=== PATIENT | male | born 1945 | race Caucasian/White ===

== ENCOUNTER → 2020-09-30 | Outpatient (CLI) | payer MEDICARE ==
--- NOTE | 2020-09-30 16:09 | ECHOS ---
STRESS ECHOCARDIOGRAM DATE OF SERVICE: 09/30/20 INDICATIONS: Pre-Op Eval BASELINE HEART RATE: 83 BASELINE BLOOD PRESSURE: 123/75 MAXIMUM HEART RATE: 139 MAXIMUM BLOOD PRESSURE: 170/86 85% MPHR: 124 100% MPHR: 155 METS: 7.0 MAXIMUM STAGE REACHED: II TOTAL EXERCISE TIME: 5:09 min RESULTS: Baseline rhythm is sinus mechanism, rate of 83, normal axis and intervals, rare PVCs. Baseline blood pressure 123/75 mmHg. Patient exercised on Mike protocol for 5 minutes 9 seconds reaching a peak rate of 139 beats per minute which is equal to 90% maximum predicted heart rate. Peak blood pressure 170/86 mmHg. The test was terminated secondary to fatigue. There was no chest pain. Electrocardiograph monitoring revealed no evidence of diagnostic ischemic ST deviation. FINDINGS: Baseline echocardiogram revealed normal wall motion. At peak exercise, there was normal wall motion augmentation with no hypokinesis or dyskinesis. CONCLUSION: 1. Average exercise tolerance with normal echocardiograph response to exercise and rare PVCs. 2. Normal stress echocardiogram with no evidence of stress-induced ischemia. MMODL / IJN: [id number] /
== END | disposition home or self-care (01) ==
LOC: RADNMMAIN 10:28
PROVIDERS: ATTEND Internal Medicine
DX: Z01.818 Encounter for other preprocedural examination (principal); I49.3 Ventricular premature depolarization
CPT/HCPCS: 93351

== ENCOUNTER → 2021-04-16 | Outpatient (CLI) | payer MEDICARE ==
[2021-04-16 14:55] LABS: Basophils % (A) 1 %; Eosinophils # (A) 0.1 k/uL (0-0.7); Eosinophils % (A) 1 %; HCT 43.7 % (39.0-53.0); HGB 14.2 gm/dL (13.0-17.5); Lymphocytes # (A) 1.6 k/uL (1.0-4.8); Lymphocytes % (A) 30 %; MCH 32.1 pg (25.0-35.0); MCHC 32.5 g/dL (31.0-37.0); MCV 98.8 fL (80.0-100.0); Mean Platelet Volume 7.3; Monocytes # (A) 0.3 k/uL (0-1.0); Monocytes % (A) 5 %; Neutrophils # (A) 3.2 k/uL (1.3-7.7); Neutrophils % (A) 62 %; Platelet Count 218 k/uL (150-450); RBC 4.42 m/uL (4.30-5.90); RDW 12.9 % (11.5-15.5); WBC 5.2 k/uL (3.8-10.6)
[2021-04-16 15:23] LABS: RBC Morphology Normal
[2021-04-16 23:08] LABS: Protein, Total 6.5 g/dL (6.2-8.2)
[2021-04-17 14:55] LABS: Gamma Globulin 0.85 g/dL (0.70-1.50)
== END | disposition home or self-care (01) ==
LOC: LABWHC1 13:43
PROVIDERS: ATTEND Internal Medicine
DX: D72.819 Decreased white blood cell count, unspecified (principal)
CPT/HCPCS: 36415; 84165; 85025

== ENCOUNTER → 2021-12-14 | Outpatient (CLI) | payer MEDICARE ==
--- NOTE | 2021-12-14 13:05 | US ---
EXAMINATION TYPE: US venous doppler duplex LE RT DATE OF EXAM: 12/14/2021 12:47 PM COMPARISON: NONE CLINICAL HISTORY: R22.41 SWELLING RIGHT LOWER LEG. Intermittent swelling within the right leg. Hx of DVT. SIDE PERFORMED: Right TECHNIQUE: The lower extremity deep venous system is examined utilizing real time linear array sonog mindi with graded compression, doppler sonography and color-flow sonography. VESSELS IMAGED: Common Femoral Vein Deep Femoral Vein Greater Saphenous Vein * Femoral Vein Popliteal Vein Small Saphenous Vein * Proximal Calf Veins (* superficial vessels) Right Leg: No evidence of DVT in veins imaged. Duplicate femoral vein noted. IMPRESSION: No ultrasound evidence for deep venous thrombosis of the right lower extremity.
[2021-12-14 13:35] LABS: Appearance,Urine Clear (Clear); Bilirubin,Urine Negative (Negative); Blood,Urine Negative (Negative); Color,Urine Yellow; Glucose,Urine (UA) Negative (Negative); Ketones,Urine Negative (Negative); Leukocyte Esterase,Urine Negative (Negative); Nitrite,Urine Negative (Negative); Protein,Urine Negative (Negative); Specific Gravity,Urine 1.018 (1.001-1.035); Urobilinogen,Urine <2.0 mg/dL (<2.0)
[2021-12-14 13:41] LABS: INR 0.9 (<1.2); Partial Thromboplastin Time 24.4 sec (22.0-30.0); Prothrombin Time 10.2 sec (9.0-12.0)
[2021-12-14 19:06] LABS: Basophils # (A) 0.02 X 10*3/uL (0.00-0.10); Basophils % (A) 0.4 %; Eosinophils # (A) 0.07 X 10*3/uL (0.04-0.35); Eosinophils % (A) 1.3 %; HCT 40.2 % (39.6-50.0); HGB 13.1 g/dL (13.0-17.0); Immature Grans, Automated 0.4 %; Lymphocytes # (A) 1.62 X 10*3/uL (0.90-5.00); Lymphocytes % (A) 29.4 %; MCHC 32.6 g/dL (32.0-37.0); Mean Platelet Volume 9.5 fL (9.5-12.2); Monocytes # (A) 0.48 X 10*3/uL (0.20-1.00); Monocytes % (A) 8.7 %; NRBC Per 100 WBC 0 /100 WBCS (0.0-0.0); Neutrophils % (A) 59.8 %; Platelet Count 275 X 10*3/uL (140-440); RBC 4.37 X 10*6/uL (4.40-5.60); RDW 13.5 % (11.5-14.5); WBC 5.51 X 10*3/uL (4.50-10.00)
[2021-12-14 19:09] LABS: African American GFR (CKD) 89.1 (60.0-200.0); Albumin 4.1 g/dL (3.8-4.9); Albumin/Globulin Ratio 1.28 (1.60-3.17); Anion Gap 8.5 mmol/L (10.00-18.00); BUN/Creat Ratio 20.29 Ratio (12.00-20.00); Blood Urea Nitrogen 19.5 mg/dL (9.0-27.0); Calcium 9.5 mg/dL (8.7-10.3); Carbon Dioxide 25.6 mmol/L (20.0-27.5); Globulin 3.2 g/dL (1.6-3.3); Non-African American GFR(CKD) 76.9 (60.0-200.0); Potassium 4.1 mmol/L (3.5-5.5); Total Bilirubin 0.4 mg/dL (0.30-1.20); Total Protein 7.2 g/dL (6.2-8.2)
== END | disposition home or self-care (01) ==
LOC: RADUSWWP 12:16
PROVIDERS: ATTEND Internal Medicine
DX: Z01.818 Encounter for other preprocedural examination (principal); R22.41 Localized swelling, mass and lump, right lower limb
CPT/HCPCS: 80053; 81003; 85025; 85610; 85730

== ENCOUNTER → 2023-05-09 | Outpatient (CLI) | payer MEDICARE ==
--- NOTE | 2023-05-09 19:24 | US ---
EXAMINATION TYPE: US screening aorta DATE OF EXAM: 05/09/2023 COMPARISON: NONE CLINICAL INDICATION: Male, 77 years old with history of Z13.6 SCR FOR AAA; screening TECHNIQUE: Multiple sonographic images of the abdominal aorta are obtained. FINDINGS: EXAM MEASUREMENTS: Abdominal Aorta: Proximal: 2.6 x 2.7cm Mid: 2.3 x 2.4cm Distal: 2.3 x 2.7cm Bifurcation: Right Iliac: 1.4 x 1.6cm Left Iliac: 1.5 x 1.3cm FI[employer]BRICK LAYER NOTES: Aorta appears ectatic. Iliacs upper limits of normal. IMPRESSION: Ectatic proximal and distal abdominal aorta measuring up to 2.7 cm each. The bilateral common iliac arteries are also borderline ectatic measuring up to 1.6 cm on the right and 1.5 cm on the left. No evidence for AAA. MTDD
== END | disposition home or self-care (01) ==
LOC: RADUSWWP 07:51
PROVIDERS: ATTEND Internal Medicine
DX: Z13.6 Encounter for screening for cardiovascular disorders (principal); I77.811 Abdominal aortic ectasia
CPT/HCPCS: 93979

== ENCOUNTER → 2024-05-21 | Outpatient (CLI) | payer MEDICARE ==
--- NOTE | 2024-05-21 11:12 | US ---
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 FINDINGS: EXAM MEASUREMENTS: Abdominal Aorta: Proximal: 3.2 x 2.9cm Mid: 2.4 x 2.5cm Distal: 2.5 x 2.7cm Bifurcation: Right Iliac: 1.4 x 1.4cm Left Iliac: 1.6 x 1.6cm SPIRAL [employer]NER NOTES: Aorta appears ectatic as noted last year IMPRESSION: No evidence for aortic aneurysm. No further workup recommended for negative screening aortic aneurysm ultrasound. [facility], , 05/21/2024 11:10 AM
== END | disposition home or self-care (01) ==
LOC: RADUSWWP 08:53
PROVIDERS: ATTEND Internal Medicine
DX: Z13.6 Encounter for screening for cardiovascular disorders (principal); I77.811 Abdominal aortic ectasia
CPT/HCPCS: 76706